=== PATIENT | male | born 2000 | race Caucasian/White ===

== ENCOUNTER 2020-06-05 21:14 | Emergency (ER) | payer SELFPAY ==
[~2020-06-05] VITALS: Ht 172.7 cm; Wt 77.0 kg
[2020-06-05] MEDS ORDERED: MORPHINE SULFATE 4 MG/ML CPJ (NOT FOR IM USE) IV STA (21:34)
[2020-06-05] MEDS ORDERED: SODIUM CHLORIDE 0.9% 1,000 ML IV ONE ×2 (21:45→22:45)
[2020-06-05 21:57] LABS: BG BASE EXCESS -4.2 mmol/L (-2.0-2.0); BG CARBOXYHEMOGLOBIN 0.1 % (0.5-1.5); BG DEOXYHEMOGLOBIN 7.1 % (0.0-5.0); BG FRACTION INSPIRED OXYGEN 21; BG HCO3 ACT 20.9 mmol/L (22.0-26.0); BG METHEMOGLOBIN 0.4 % (0.0-1.5); BG OXYGEN SATURATION 92.9 % (92.0-98.5); BG OXYHEMOGLOBIN 92.4 % (94.0-97.0); BG PCO2 38.5 mmHg (35.0-45.0); BG PH 7.353 (7.350-7.450); BG PO2 67.7 mmHg (75.0-100.0); BG TOTAL HEMOGLOBIN 14.8 g/dL (12.0-18.0); BG VENT MODE ROOM AIR
[2020-06-05 22:09] LABS: BASOPHILS % 0.3 % (0.0-2.0); EOSINOPHILS % 0.3 % (0.0-5.0); HEMATOCRIT. 43.4 % (42.0-52.0); HEMOGLOBIN. 14.5 g/dL (14.0-18.0); LYMPHOCYTES % 37.1 % (20.0-50.0); MEAN CORPUSCULAR HEMOGLOBIN 28.5 pg (28.0-32.0); MEAN CORPUSCULAR VOLUME 85.5 fL (80.0-94.0); MEAN PLATELET VOLUME 8.7 fl (7.4-10.4); MONOCYTES % 5.5 % (2.0-8.0); NEUTROPHILS % 56.8 % (40.0-76.0); PLATELET 350 x1000/uL (130-400); RED BLOOD CELL COUNT 5.07 mill/uL (4.7-6.1); RED CELL DISTRIBUTION WIDTH 13.2 % (11.6-14.6)
[2020-06-05 22:21] LABS: CHLORIDE 104 mEq/L (98-107)
[2020-06-05 22:25] LABS: ETHANOL BLOOD < 10 mg/dL
[2020-06-05 22:30] LABS: CREATINE KINASE 97 IU/L (39-308)
[2020-06-05] MEDS ORDERED: KCL 20MEQ/100ML PREMIX 100 ML IV ONE (22:45)
[2020-06-05] MEDS ORDERED: MAGNESIUM 1 G PREMIX 100 ML IV ONE (22:45)
[2020-06-06] MEDS ORDERED: SODIUM CHLORIDE 0.9% 1,000 ML IV ONE (01:00)
[2020-06-06] MEDS ORDERED: KCL 20MEQ/100ML PREMIX 100 ML IV SCH (01:00)
[2020-06-06 04:38] VITALS: BP 113/68
== END 2020-06-06 04:55 | disposition home or self-care (01) ==
LOC: ER 21:14
DX: T43.3X2A Poisoning by phenothiazine antipsychotics and neuroleptics, intentional self-harm, initial encounter (principal); F32.9 Major depressive disorder, single episode, unspecified; E87.2 Acidosis; E87.6 Hypokalemia; R00.0 Tachycardia, unspecified; F12.10 Cannabis abuse, uncomplicated; R73.03 Prediabetes; Y92.488 Other paved roadways as the place of occurrence of the external cause
CPT/HCPCS: 36415; 36600; 80053; 80307; 80320; 80329; 82140; 82375; 82550; 82805; 83605; 83690; 85025; 93005; 96361; 96365; 96366; 96368; 96375; 99285; J2270; J3475; J3480; J7030; 82693; G0480

== ENCOUNTER 2020-06-20 13:21 | Emergency (ER) | payer MEDICAID ==
[~2020-06-20] VITALS: Ht 172.7 cm; Wt 85.0 kg
[2020-06-20] MEDS ORDERED: KETOROLAC 60MG/2ML VIAL IM ONE (14:30)
[2020-06-20] MEDS ORDERED: IBUP-2028 MT (15:23)
[2020-06-20 16:20] VITALS: BP 153/85
== END 2020-06-20 16:49 | disposition home or self-care (01) ==
LOC: ER 13:53
DX: R07.89 Other chest pain (principal)
CPT/HCPCS: 71046; 82962; 93005; 96372; 99285; J1885

== ENCOUNTER 2020-12-07 21:38 | Emergency (ER) | payer MEDICAID ==
[~2020-12-07] VITALS: Ht 172.7 cm; Wt 89.0 kg
[~2020-12-07 21:38] MED LIST: IBUP-2028 MT
[2020-12-07 22:22] VITALS: BP 153/95
== END 2020-12-08 00:50 | disposition left against medical advice (07) ==
LOC: ER 22:02
DX: J02.9 Acute pharyngitis, unspecified (principal)
CPT/HCPCS: 99281

== ENCOUNTER 2024-01-16 13:32 | Emergency (ER) | payer MEDICAID ==
[~2024-01-16] VITALS: Ht 172.7 cm; Wt 94.0 kg
[2024-01-16 13:34] VITALS: O2SAT 99
[2024-01-16 13:37] VITALS: TEMP 98.6; O2SAT 100
[2024-01-16 14:00] VITALS: BP 158/94
[2024-01-16] MEDS ORDERED: TETANUS, DIPHTHERIA, PERTUSSIS VAC/PF 0.5ML (>10YR OLD) IM ONE (14:00)
[2024-01-16] MEDS: IBUPROFEN 600MG TABLET PO ONE (14:00)
[2024-01-16] MEDS ORDERED: LIDOCAINE HCL/PF 1% 10 MG/ML 5ML VIAL INFIL ONE (14:00)
[2024-01-16] MEDS ORDERED: BACITRACIN ZINC OINT UDPKT TOP ONE (14:00)
[2024-01-16] MEDS ORDERED: FLUORESCEIN SODIUM 1MG/STRIP RIGHTEYE ONE (14:15)
[2024-01-16 14:26] VITALS: PULSE 84; RESP 18
== END 2024-01-16 13:59 | disposition home or self-care (01) ==
LOC: ER 13:32
DX: S05.11XA Contusion of eyeball and orbital tissues, right eye, initial encounter (principal); X58.XXXA Exposure to other specified factors, initial encounter; W21.03XA Struck by baseball, initial encounter; Y92.89 Other specified places as the place of occurrence of the external cause; Y99.8 Other external cause status
CPT/HCPCS: 70486; 12011; 99284; J3490; Z7610; 90715

== ENCOUNTER 2024-01-21 08:07 | Emergency (ER) | payer MEDICAID ==
[~2024-01-21] VITALS: Ht 172.7 cm; Wt 94.0 kg
[2024-01-21 08:15] VITALS: O2SAT 99
[2024-01-21 09:17] VITALS: BP 140/77; PULSE 62; RESP 16; TEMP 36.89184; O2SAT 99
== END 2024-01-21 10:21 | disposition home or self-care (01) ==
LOC: ER 08:20
DX: S01.112D Laceration without foreign body of left eyelid and periocular area, subsequent encounter (principal); Z48.02 Encounter for removal of sutures; Z48.00 Encounter for change or removal of nonsurgical wound dressing; X58.XXXD Exposure to other specified factors, subsequent encounter
CPT/HCPCS: 99281

== ENCOUNTER 2024-06-18 09:58 | Emergency (ER) | payer MEDICAID ==
[~2024-06-18] VITALS: Ht 172.7 cm; Wt 95.2 kg
[2024-06-18 10:04] VITALS: O2SAT 100
[2024-06-18 10:41] VITALS: TEMP 36.8
[2024-06-18] MEDS: KETOROLAC 30MG/ML VIAL IM ONE (10:43)
[2024-06-18 10:58] LABS: BASOPHILS % 0.4 % (0.0-2.0); EOSINOPHILS % 0.1 % (0.0-5.0); HEMATOCRIT. 42.4 % (42.0-52.0); HEMOGLOBIN. 14.4 g/dL (14.0-18.0); LYMPHOCYTES % 38.9 % (20.0-50.0); MEAN CORPUSCULAR HEMOGLOBIN 28.7 pg (28.0-32.0); MEAN CORPUSCULAR HGB CONC 33.9 g/dL (31.0-37.0); MEAN CORPUSCULAR VOLUME 84.6 fL (80.0-94.0); MEAN PLATELET VOLUME 8.3 fl (7.4-10.4); NEUTROPHILS % 51.6 % (40.0-76.0); PLATELET 168 x1000/uL (130-400); RED BLOOD CELL COUNT 5.02 mill/uL (4.7-6.1); WHITE BLOOD COUNT 3.1 x1000/uL (4.5-11.0)
[2024-06-18 11:05] LABS: CHLORIDE 102 mEq/L (98-107); POTASSIUM 4.4 mEq/L (3.5-5.1); SODIUM 139 mEq/L (136-145)
[2024-06-18 11:06] LABS: CALCIUM 9.8 mg/dL (8.7-10.4); CARBON DIOXIDE 29 mEq/L (21-32)
[2024-06-18 11:11] LABS: CREATININE 1.1 mg/dL (0.6-1.3); GLUCOSE 114 mg/dL (70-105); UREA NITROGEN BLOOD 12 mg/dL (9-23)
[2024-06-18] MEDS ORDERED: TOPUD MT (11:54)
[2024-06-18 12:03] VITALS: BP 155/88; PULSE 86; RESP 12; O2SAT 100
[2024-06-18 12:23] LABS: INFLUENZA TYPE A Presumptive Negative (Pres. Neg.); INFLUENZA TYPE B Presumptive Negative (Pres. Neg.)
== END 2024-06-18 12:06 | disposition home or self-care (01) ==
LOC: ER 09:58
DX: R51.9 Headache, unspecified (principal); Z20.822 Contact with and (suspected) exposure to COVID-19
CPT/HCPCS: 80048; 85025; 87804 ×2; 36415; 96372; 99283; 87426; J1885; Z7610